=== PATIENT | female | born 1960 | race Hispanic/Latino ===

== ENCOUNTER → 2018-05-13 | Outpatient (CLI) | payer MEDICARE | END | disposition home or self-care (01) | LOC: RAH 08:32 | PROVIDERS: ATTEND Internal Medicine Endocrinology, Diabetes & Metabolism | DX: E83.52 Hypercalcemia (principal); D36.7 Benign neoplasm of other specified sites | CPT/HCPCS: 78070; A9500 ==

== ENCOUNTER → 2022-05-23 | Outpatient (CLI) | payer MEDICARE ==
[~2022-05-23] MED LIST: IOHEXOL 350 MG/ML 100ML INFUS..BTL IV ONE
== END | disposition home or self-care (01) ==
LOC: RAH 09:09
PROVIDERS: ATTEND Internal Medicine Endocrinology, Diabetes & Metabolism
DX: K76.0 Fatty (change of) liver, not elsewhere classified (principal); E27.8 Other specified disorders of adrenal gland
CPT/HCPCS: 74170; Q9967

== ENCOUNTER → 2022-09-19 | Outpatient (CLI) | payer MEDICARE ==
[~2022-09-19] MED LIST changes: +ASPI-1197 PO; +CYAN-52 PO; +DICY20TA3 PO; +EMPA10TA PO; +GLIP5TAB11 PO; +ISOS30TA92 PO; +LEVO75CA5 PO; +MECL-226 PO; +METO5TAB2 PO; +ONDA-105 PO; +SENN-297 PO
== END | disposition home or self-care (01) ==
LOC: RAH 09:30
PROVIDERS: ATTEND Family Medicine
DX: K86.1 Other chronic pancreatitis (principal); I25.10 Atherosclerotic heart disease of native coronary artery without angina pectoris; K44.9 Diaphragmatic hernia without obstruction or gangrene
CPT/HCPCS: 74170; Q9967

== ENCOUNTER → 2022-10-23 | Outpatient (CLI) | payer MEDICARE ==
[~2022-10-23] MED LIST changes: -IOHEXOL 350 MG/ML 100ML INFUS..BTL IV ONE
== END | disposition home or self-care (01) ==
LOC: RAH 08:53
PROVIDERS: ATTEND Surgery
DX: K21.9 Gastro-esophageal reflux disease without esophagitis (principal)
CPT/HCPCS: 74240

== ENCOUNTER 2022-12-01 05:50 | Day surgery (SDC) | payer MEDICARE ==
[2022-11-28 14:19] VITALS: BP 144/67; PULSE 76; RESP 16
[~2022-12-01] VITALS: Ht 149.9 cm; Wt 89.3 kg
[~2022-12-01 05:50] MED LIST changes: +CREON6 PO; +DEXL60CA3 PO; -EMPA10TA PO; +EMPA25TA PO; +ESOM40CA54 PO; +FAMO40TA7 PO; -MECL-226 PO; -METO5TAB2 PO; +MULT-1367 PO; -ONDA-105 PO; +ROSU5TAB12 PO; +SERT-440 PO; +SUCR1TAB2 PO; +TOPI-255 PO; +TYLENOL ARTHRITIS PO
[2022-12-01 07:10] VITALS: BP 118/58; PULSE 71; RESP 16
[2022-12-01] MEDS ORDERED: PROPOFOL 10 MG/ML 20ML VIAL IV ONE (08:22)
== END 2022-12-01 09:40 | disposition home or self-care (01) ==
LOC: ENDO 05:50 → DAH 05:50 → ENDO 09:40
PROVIDERS: ATTEND Surgery
DX: K21.9 Gastro-esophageal reflux disease without esophagitis (principal); Z20.822 Contact with and (suspected) exposure to COVID-19; I10 Essential (primary) hypertension; J45.909 Unspecified asthma, uncomplicated; G47.30 Sleep apnea, unspecified; E66.01 Morbid (severe) obesity due to excess calories; E11.9 Type 2 diabetes mellitus without complications; M19.90 Unspecified osteoarthritis, unspecified site; Z90.49 Acquired absence of other specified parts of digestive tract; Z98.84 Bariatric surgery status; Z98.890 Other specified postprocedural states; Z98.49 Cataract extraction status, unspecified eye; Z80.9 Family history of malignant neoplasm, unspecified; Z79.82 Long term (current) use of aspirin; Z79.01 Long term (current) use of anticoagulants; Z79.899 Other long term (current) drug therapy
CPT/HCPCS: 87426; 88305; 88312; 43239; J2704; A4620; A4215 ×2; A4223; A4657 ×3; A7002; A4222; A4221; A4663; A4606; J3490